=== PATIENT | female | born 1955 | race African-American/Black ===

== ENCOUNTER 2017-01-16 16:12 | Emergency (ER) | payer OTHER ==
[~2017-01-16] VITALS: Ht 167.6 cm; Wt 105.0 kg
[~2017-01-16 16:12] MED LIST: AMLODIPINE; CIPROFLOXACIN HCL; DICLOFENAC SODIUM; HYDR12.529; METFORMIN
[2017-01-16 20:27] VITALS: BP 157/91
[2017-01-16] MEDS ORDERED: HYDROCODONE/ACETAMINOPHEN 5/325MG TABLET PO ONE (20:30)
== END 2017-01-16 23:25 | disposition home or self-care (01) ==
LOC: ER 16:12
DX: S52.90XA Unspecified fracture of unspecified forearm, initial encounter for closed fracture (principal); S09.8XXA Other specified injuries of head, initial encounter; M25.562 Pain in left knee; M25.561 Pain in right knee; I10 Essential (primary) hypertension; E11.9 Type 2 diabetes mellitus without complications; W01.0XXA Fall on same level from slipping, tripping and stumbling without subsequent striking against object, initial encounter; Y93.89 Activity, other specified; Y99.8 Other external cause status; Y92.89 Other specified places as the place of occurrence of the external cause; Z87.440 Personal history of urinary (tract) infections
CPT/HCPCS: 29105; 70450; 73030; 73080; 73562; 99284; A4565

== ENCOUNTER 2024-04-21 07:32 | Inpatient (IN) | payer MEDICAID, OTHER ==
[~2024-04-21] VITALS: Ht 170.2 cm; Wt 61.7 kg
[2024-04-21 08:16] LABS: BASOPHILS % 0.6 % (0.0-2.0); DIFFERENTIAL COMMENT 0; EOSINOPHILS % 1.2 % (0.0-5.0); HEMATOCRIT. 49.3 % (36.0-48.0); HEMOGLOBIN. 15.4 g/dL (12.0-16.0); LYMPHOCYTES % 33.2 % (20.0-50.0); MEAN CORPUSCULAR HEMOGLOBIN 25.2 pg (28.0-32.0); MEAN CORPUSCULAR HGB CONC 31.3 g/dL (31.0-37.0); MEAN CORPUSCULAR VOLUME 80.6 fL (81.0-99.0); MEAN PLATELET VOLUME 9.1 fl (7.4-10.4); MONOCYTES % 7.1 % (2.0-8.0); NEUTROPHILS % 57.9 % (40.0-76.0); PLATELET 218 x1000/uL (130-400); RED BLOOD CELL COUNT 6.12 mill/uL (4.2-5.4); RED CELL DISTRIBUTION WIDTH 14.9 % (11.6-14.6); WHITE BLOOD COUNT 6.2 x1000/uL (4.5-11.0)
[2024-04-21] MEDS: ONDANSETRON HCL 4MG/2ML INJ IV ONE (08:19)
[2024-04-21 08:21] LABS: PROTHROMBIN TIME 10.3 sec (9.6-11.0)
[2024-04-21 08:32] LABS: CHLORIDE 103 mEq/L (98-107); POTASSIUM 3.7 mEq/L (3.5-5.1); SODIUM 139 mEq/L (136-145)
[2024-04-21 08:33] LABS: CALCIUM 9.7 mg/dL (8.7-10.4); CARBON DIOXIDE 23 mEq/L (21-32)
[2024-04-21 08:38] LABS: CREATININE 0.9 mg/dL (0.6-1.0); GLUCOSE 394 mg/dL (70-105); UREA NITROGEN BLOOD 10 mg/dL (9-23)
[2024-04-21 08:39] LABS: ALANINE AMINOTRANSFERASE 119 IU/L (10-49)
[2024-04-21 08:40] LABS: ALBUMIN 4.1 g/dL (3.2-4.8); ASPARTATE AMINOTRANSFERASE 76 IU/L (<34); BILIRUBIN DIRECT 0.3 mg/dL (<=3.0); BILIRUBIN TOTAL 1.2 mg/dL (0.1-1.0); PROTEIN TOTAL 7.5 g/dL (6.0-8.3)
[2024-04-21 08:41] LABS: ETHANOL BLOOD < 10 mg/dL (<10); TROPONIN I HIGH SENSITIVITY 37 ng/L (3.0-34)
[2024-04-21] MEDS: ASPIRIN 325MG TABLET PO ONE (09:02)
[2024-04-21] MEDS: MECLIZINE 25MG TABLET PO ONE (09:02)
[2024-04-21] MEDS ORDERED: SODIUM CHLORIDE 0.9% 1,000 ML IV SCH (09:30)
[2024-04-21] MEDS ORDERED: IPRATROPIUM/ALBUTEROL 0.5-3(2.5)MG/3ML NEB HHN PRN ×2 (09:30→10:00)
[2024-04-21] MEDS: IOHEXOL-350 100 ML BOTTLE ONE (09:32)
[2024-04-21] MEDS ORDERED: DEXTROSE 50% WATER 50ML SYRINGE IV PRN ×2 (10:00→17:15)
[2024-04-21] MEDS ORDERED: ACETAMINOPHEN 325MG TABLET PO PRN (10:00)
[2024-04-21] MEDS: SODIUM CHLORIDE 0.9% 1,000 ML IV SCH (10:00)
[2024-04-21] MEDS ORDERED: ONDANSETRON HCL 4MG/2ML INJ IV PRN (10:00)
[2024-04-21] MEDS: HYDRALAZINE 20MG/ML VIAL IV NR (10:38)
[2024-04-21] MEDS: INSULIN GLARGINE 100 UNITS/ML SUBCUT SCH (11:04)
[2024-04-21] MEDS: AMLODIPINE 5MG TABLET PO NR (11:05)
[2024-04-21 11:07] LABS: CLARITY URINE CLEAR (CLEAR); COLOR URINE YELLOW (YELLOW); GLUCOSE URINE 3+ (NEGATIVE); KETONES URINE 2+ (NEGATIVE); LEUKOCYTE ESTERASE URINE NEGATIVE (NEGATIVE); NITRITE URINE NEGATIVE (NEGATIVE); OCCULT BLOOD URINE NEGATIVE (NEGATIVE); PH URINE 7.5 (4.5-8.0); PROTEIN URINE 1+ (NEGATIVE); SPECIFIC GRAVITY URINE 1.043 (1.005-1.030); UROBILINOGEN URINE 0.2 E.U./dL (0.2-1.0)
[2024-04-21 11:16] LABS: *AMPHETAMINES SCREEN URINE NEGATIVE (NEGATIVE); *BARBITURATES SCREEN URINE NEGATIVE (NEGATIVE); *BENZODIAZEPINES SCREEN URINE NEGATIVE (NEGATIVE); *COCAINE SCREEN URINE NEGATIVE (NEGATIVE)
[2024-04-21 11:17] LABS: METHADONE URINE SCREEN NEGATIVE (NEGATIVE); OPIATES URINE SCREEN NEGATIVE (NEGATIVE); PHENCYCLIDINE URINE SCREEN NEGATIVE (NEGATIVE)
[2024-04-21 11:18] LABS: CANNABINOID URINE SCREEN NEGATIVE (NEGATIVE); ECSTASY MDMA SCREEN URINE NEGATIVE (NEGATIVE)
[2024-04-21 11:26] LABS: TROPONIN I HIGH SENSITIVITY 26 ng/L (3.0-34)
[2024-04-21 11:48] LABS: BACTERIA URINE NONE SEEN; RBC URINE NONE SEEN /hpf (0-2); SQUAMOUS EPITHELIAL CELL URINE RARE /lpf (RARE/1+); WBC URINE 0-2 /hpf (0-2); YEAST URINE NONE SEEN
[2024-04-21] MEDS: ONDANSETRON HCL 4MG/2ML INJ IV PRN (11:50)
[2024-04-21] MEDS: PANTOPRAZOLE SODIUM 40 MG/VIAL IV SCH (11:59)
[2024-04-21] MEDS: BLOOD SUGAR DIAGNOSTIC STRIP TEST SCH (13:00)
[2024-04-21] MEDS: INSULIN LISPRO 100 UNITS/ML SUBCUT SCH ×2 (13:20→18:20)
[2024-04-21 13:44] LABS: HEPATITIS B SURFACE ANTIGEN NEGATIVE (Negative)
[2024-04-21 14:05] LABS: HEPATITIS A AB IGM NEGATIVE (Negative); HEPATITIS B CORE AB IGM NEGATIVE (Negative)
[2024-04-21 14:06] LABS: HEPATITIS C AB NON REACTIVE (Neg) (Negative)
[2024-04-21] MEDS: MECLIZINE 25MG TABLET PO PRN (16:57)
[2024-04-21] MEDS: INSULIN REGULAR (HUMULIN R) 1000UNITS/10ML VIAL IV NR (17:27)
[2024-04-21 18:39] LABS: CHLORIDE 102 mEq/L (98-107); POTASSIUM 3.8 mEq/L (3.5-5.1); SODIUM 140 mEq/L (136-145)
[2024-04-21 18:40] LABS: CARBON DIOXIDE 20 mEq/L (21-32)
[2024-04-21 18:41] LABS: CALCIUM 9.4 mg/dL (8.7-10.4)
[2024-04-21 18:45] LABS: CREATININE 0.9 mg/dL (0.6-1.0); UREA NITROGEN BLOOD 13 mg/dL (9-23)
[2024-04-21 18:52] LABS: GLUCOSE 434 mg/dL (70-105)
[2024-04-21 18:56] LABS: BETA HYDROXYBUTYRATE 2.5 mMol/L (0.0-0.3)
[2024-04-21 20:58] LABS: CREATINE KINASE 249 IU/L (34-145)
[2024-04-21] MEDS: ATORVASTATIN CALCIUM 40MG TABLET PO SCH (21:08)
[2024-04-21] MEDS: SODIUM CHLORIDE 0.45% 1,000 ML IV SCH (21:19)
[2024-04-21 22:42] VITALS: BP 160/85; PULSE 97; RESP 19; TEMP 36.5
[2024-04-22] VITALS (18 sets, daily range): BP systolic 124–176; BP diastolic 68–100; PULSE 80–107; RESP 17–30; TEMP 36.3–36.8; O2SAT 94–100
[2024-04-22] MEDS: HYDRALAZINE 20MG/ML VIAL IV PRN (00:42)
[2024-04-22] MEDS ORDERED: DILTIAZEM 125MG in DEXTROSE 5% WATER 125ML IV PRN (03:00)
[2024-04-22] MEDS: ADENOSINE 3 MG/ML 2ML VIAL IV NR (03:34)
[2024-04-22] MEDS: DILTIAZEM HCL 5MG/ML 5ML VIAL IV NR (03:35)
[2024-04-22 03:44] LABS: BASOPHILS % 0.3 % (0.0-2.0); DIFFERENTIAL COMMENT 0; HEMATOCRIT. 46.7 % (36.0-48.0); HEMOGLOBIN. 14.6 g/dL (12.0-16.0); LYMPHOCYTES % 8.9 % (20.0-50.0); MEAN CORPUSCULAR HGB CONC 31.4 g/dL (31.0-37.0); MEAN CORPUSCULAR VOLUME 79.6 fL (81.0-99.0); MEAN PLATELET VOLUME 9.9 fl (7.4-10.4); MONOCYTES % 6.9 % (2.0-8.0); NEUTROPHILS % 83.9 % (40.0-76.0); PLATELET 273 x1000/uL (130-400); RED BLOOD CELL COUNT 5.86 mill/uL (4.2-5.4); RED CELL DISTRIBUTION WIDTH 14.7 % (11.6-14.6); WHITE BLOOD COUNT 13.5 x1000/uL (4.5-11.0)
[2024-04-22 04:07] LABS: CALCIUM 9.5 mg/dL (8.7-10.4); CARBON DIOXIDE 23 mEq/L (21-32); CHLORIDE 101 mEq/L (98-107); POTASSIUM 2.9 mEq/L (3.5-5.1); SODIUM 140 mEq/L (136-145)
[2024-04-22 04:12] LABS: CREATININE 1.1 mg/dL (0.6-1.0); GLUCOSE 331 mg/dL (70-105)
[2024-04-22 04:13] LABS: LDL CHOLESTEROL 142 mg/dL (5-100); TRIGLYCERIDE 103 mg/dL (0-150); UREA NITROGEN BLOOD 18 mg/dL (9-23)
[2024-04-22 04:14] LABS: CHOLESTEROL 227 mg/dL (<200); CREATINE KINASE 208 IU/L (34-145); HDL CHOLESTEROL 63 mg/dL (>65)
[2024-04-22 04:17] LABS: T4 FREE 1.71 ng/dL (0.89-1.76); THYROID STIMULATING HORMONE < 0.10 uIU/mL (0.55-4.78)
[2024-04-22] MEDS: KCL 20MEQ/100ML PREMIX 100 ML IV SCH (05:22)
[2024-04-22] MEDS: INSULIN LISPRO 100 UNITS/ML SUBCUT SCH ×2 (05:47→07:40)
[2024-04-22] MEDS: POTASSIUM CHLORIDE 20MEQ/PACKET PO NR (05:47)
[2024-04-22] MEDS ORDERED: ADENOSINE 3 MG/ML 2ML VIAL IV ONE (07:17)
[2024-04-22] MEDS: ASPIRIN 81MG EC TABLET PO SCH (09:29)
[2024-04-22] MEDS: AMLODIPINE 10MG TABLET PO SCH (09:29)
[2024-04-22] MEDS: METOPROLOL SUCCINATE 50MG ER TABLET PO SCH (09:30)
[2024-04-22] MEDS: LOSARTAN 25 MG TABLET PO SCH (12:23)
[2024-04-22] MEDS: ENOXAPARIN 60MG/0.6ML SYR SUBCUT SCH (12:23)
[2024-04-22 12:27] LABS: POTASSIUM 4.1 mEq/L (3.5-5.1)
[2024-04-22 12:28] LABS: CALCIUM 9.7 mg/dL (8.7-10.4)
[2024-04-22 12:33] LABS: CREATININE 1.2 mg/dL (0.6-1.0)
[2024-04-22] MEDS: CLOPIDOGREL 75MG TABLET PO SCH (16:41)
[2024-04-23] VITALS (54 sets, daily range): BP systolic 127–178; BP diastolic 71–107; PULSE 66–93; RESP 10–28; TEMP 36.6–37.2; O2SAT 92–100
[2024-04-23 06:19] LABS: BASOPHILS % 0.3 % (0.0-2.0); DIFFERENTIAL COMMENT 0; EOSINOPHILS % 0.2 % (0.0-5.0); HEMATOCRIT. 48.6 % (36.0-48.0); HEMOGLOBIN. 15.4 g/dL (12.0-16.0); LYMPHOCYTES % 16.2 % (20.0-50.0); MEAN CORPUSCULAR HEMOGLOBIN 25.3 pg (28.0-32.0); MEAN CORPUSCULAR HGB CONC 31.6 g/dL (31.0-37.0); MEAN CORPUSCULAR VOLUME 79.9 fL (81.0-99.0); MEAN PLATELET VOLUME 9.5 fl (7.4-10.4); MONOCYTES % 4.8 % (2.0-8.0); NEUTROPHILS % 78.5 % (40.0-76.0); PLATELET 251 x1000/uL (130-400); RED BLOOD CELL COUNT 6.09 mill/uL (4.2-5.4); RED CELL DISTRIBUTION WIDTH 15.5 % (11.6-14.6); WHITE BLOOD COUNT 12.4 x1000/uL (4.5-11.0)
[2024-04-23 06:26] LABS: CARBON DIOXIDE 26 mEq/L (21-32); CHLORIDE 104 mEq/L (98-107); POTASSIUM 4.5 mEq/L (3.5-5.1); SODIUM 139 mEq/L (136-145)
[2024-04-23 06:27] LABS: CALCIUM 9.5 mg/dL (8.7-10.4)
[2024-04-23 06:32] LABS: GLUCOSE 224 mg/dL (70-105); UREA NITROGEN BLOOD 20 mg/dL (9-23)
[2024-04-23 06:34] LABS: PHOSPHORUS 2.9 mg/dL (2.5-4.9)
[2024-04-23 06:39] LABS: VITAMIN B12 SERUM 1249 pg/mL (211-911)
[2024-04-23] MEDS: INSULIN GLARGINE 100 UNITS/ML SUBCUT SCH (11:22)
[2024-04-24] VITALS (52 sets, daily range): BP systolic 126–191; BP diastolic 72–105; PULSE 67–98; RESP 0–32; TEMP 36.7–37; O2SAT 94–99
[2024-04-24] MEDS: INSULIN LISPRO 100 UNITS/ML SUBCUT SCH (06:56)
[2024-04-24 07:11] LABS: CARBON DIOXIDE 26 mEq/L (21-32); CHLORIDE 105 mEq/L (98-107); SODIUM 139 mEq/L (136-145)
[2024-04-24 07:17] LABS: CREATININE 0.9 mg/dL (0.6-1.0); GLUCOSE 238 mg/dL (70-105); UREA NITROGEN BLOOD 14 mg/dL (9-23)
[2024-04-24 07:19] LABS: PHOSPHORUS 2.8 mg/dL (2.5-4.9)
[2024-04-24 07:34] LABS: BASOPHILS % 0.3 % (0.0-2.0); DIFFERENTIAL COMMENT 0; EOSINOPHILS % 1.3 % (0.0-5.0); HEMATOCRIT. 47.8 % (36.0-48.0); LYMPHOCYTES % 30.8 % (20.0-50.0); MEAN CORPUSCULAR HEMOGLOBIN 24.6 pg (28.0-32.0); MEAN CORPUSCULAR HGB CONC 31.4 g/dL (31.0-37.0); MEAN CORPUSCULAR VOLUME 78.5 fL (81.0-99.0); MEAN PLATELET VOLUME 9.2 fl (7.4-10.4); MONOCYTES % 7.5 % (2.0-8.0); NEUTROPHILS % 60.1 % (40.0-76.0); PLATELET 244 x1000/uL (130-400); RED CELL DISTRIBUTION WIDTH 14.7 % (11.6-14.6); WHITE BLOOD COUNT 7.7 x1000/uL (4.5-11.0)
[2024-04-25] VITALS (31 sets, daily range): BP systolic 111–178; BP diastolic 72–140; PULSE 75–89; RESP 16–29; TEMP 36.6–37.3; O2SAT 95–99
[2024-04-25] MEDS: INSULIN GLARGINE 100 UNITS/ML SUBCUT SCH (10:52)
[2024-04-25] MEDS ORDERED: INSULIN LISPRO 100 UNITS/ML SUBCUT SCH (16:30)
[2024-04-26] VITALS (19 sets, daily range): BP systolic 118–176; BP diastolic 74–138; PULSE 63–83; RESP 6–28; TEMP 36.4–36.7; O2SAT 97–98
[2024-04-26] MEDS: CLONIDINE 0.1MG TABLET PO PRN (04:21)
[2024-04-26 06:00] LABS: T4 FREE 1.37 ng/dL (0.89-1.76); THYROID STIMULATING HORMONE 1.17 uIU/mL (0.55-4.78)
[2024-04-26] MEDS: INSULIN LISPRO 100 UNITS/ML SUBCUT SCH (06:43)
[2024-04-26] MEDS ORDERED: INSULIN GLARGINE 100 UNITS/ML SUBCUT SCH (10:00)
[2024-04-26] MEDS: INSULIN GLARGINE 100 UNITS/ML SUBCUT SCH (10:01)
[2024-04-26] MEDS ORDERED: HYDRALAZINE 10 MG in SODIUM CHLORIDE 0.9% 49.5 ML IV PRN (15:00)
[2024-04-26] MEDS: LOSARTAN 25 MG TABLET PO SCH (21:05)
[2024-04-27] VITALS (7 sets, daily range): BP systolic 132–170; BP diastolic 70–95; PULSE 66–84; RESP 18–20; TEMP 36.3–36.6; O2SAT 96–100
[2024-04-27] MEDS: INSULIN LISPRO 100 UNITS/ML SUBCUT SCH (08:43)
[2024-04-27] MEDS: INSULIN GLARGINE 100 UNITS/ML SUBCUT SCH (10:44)
[2024-04-27] MEDS: DOCUSATE SODIUM 100MG CAPSULE PO PRN (12:29)
[2024-04-27] MEDS ORDERED: LIP40 PO (14:02)
[2024-04-27] MEDS ORDERED: AMLO10TA80 PO (14:02)
[2024-04-27] MEDS ORDERED: LANTUSUD SUBCUT (14:02)
[2024-04-27] MEDS ORDERED: INSLIS SUBCUT (14:02)
[2024-04-27] MEDS ORDERED: CLOP-31 PO (14:02)
[2024-04-27] MEDS ORDERED: LOSA25TA26 PO (14:02)
[2024-04-27] MEDS ORDERED: ASPI-1406 PO (14:02)
[2024-04-27] MEDS ORDERED: METO-385 PO (14:02)
[2024-04-28] MEDS ORDERED: INSULIN LISPRO (LOW DOSE) 100 UNITS/ML SUBCUT SCH (06:30)
[2024-04-28] MEDS ORDERED: INSULIN LISPRO 100 UNITS/ML SUBCUT SCH ×2 (06:30)
== END 2024-04-27 23:30 | disposition home health service (06) | DRG 45 ==
LOC: ER 07:32 → EDBEDREQTM 09:02 → EDBEDREQ 09:02 → 6WST 19:14 → MICUSO 04-22 02:56 → 4WST 04-26 14:30
PROVIDERS: ADMIT Internal Medicine; ATTEND Internal Medicine
DX: I63.9 Cerebral infarction, unspecified (principal); G93.40 Encephalopathy, unspecified; N17.9 Acute kidney failure, unspecified; I47.10 Supraventricular tachycardia, unspecified; R16.0 Hepatomegaly, not elsewhere classified; D50.9 Iron deficiency anemia, unspecified; D72.829 Elevated white blood cell count, unspecified; E05.90 Thyrotoxicosis, unspecified without thyrotoxic crisis or storm; K76.0 Fatty (change of) liver, not elsewhere classified; I16.1 Hypertensive emergency; E78.00 Pure hypercholesterolemia, unspecified; I48.0 Paroxysmal atrial fibrillation; I11.9 Hypertensive heart disease without heart failure; K82.4 Cholesterolosis of gallbladder; N28.1 Cyst of kidney, acquired; E11.40 Type 2 diabetes mellitus with diabetic neuropathy, unspecified; E66.9 Obesity, unspecified; Z68.21 Body mass index [BMI] 21.0-21.9, adult; I25.10 Atherosclerotic heart disease of native coronary artery without angina pectoris; Z91.148 Patient's other noncompliance with medication regimen for other reason; Z79.01 Long term (current) use of anticoagulants; Z79.4 Long term (current) use of insulin; Z79.82 Long term (current) use of aspirin; Z79.84 Long term (current) use of oral hypoglycemic drugs; Z79.899 Other long term (current) drug therapy
CPT/HCPCS: 36415; 70496; 70498; 70551; 71045; 76700; 80048; 80061; 80076; 80305; 80320; 81003; 82010; 82024; 82533; 82550; 82607; 82962; 83036; 83735; 83930; 84075; 84100; 84439; 84443; 84481; 84484; 85025; 86705; 86709; 87340; 92610; 93005; 97112; 97116; 97162; 97166; 97535; 99291; A4606; J0153; J0282; J0360; J1650; J1815; J2405; J2470; J3475; J3480; J3490; J7060; J8597; Q9967; G0480